=== PATIENT | female | born 1980 | race Two or more races ===

== ENCOUNTER 2016-08-06 06:58 | Day surgery (SDC) | payer MEDICARE, MEDICAID ==
[~2016-08-06 06:58] MED LIST: ADVAIR 1001 DISK W/D; ALBUTEROL17 GM; AMBIEN10 MG PO; AMBIEN5 M1 PO; ANTIVERT25 MG PO; AUGMENTIN 875-11 TAB PO; BENTYL20 MG PO; BUPROPION HCL100 MG PO; CIPRO500 MG PO; COMPAZINE10 M PO; CYMBALTA30 M1 PO; DARVOCET-N 1001 TAB; DELTASONE5 MG PO; DEPAKOTE; DEPAKOTE ER500 M1 PO; DEPAKOTE500 MG PO; DICYCLOMINE HCL10 MG PO; DIVALPROEX SOD500 M2 PO; DIVALPROEX SOD500 MG; ENSURE LIQUID237 M1 PO; FLEXERIL10 MG; FLONASE16 GM NS; FLUCONAZOLE150 M2 PO; FOLIC ACID1 M1 PO; FOLIC ACID1 MG; FOLIC ACID1 MG PO; GABAPENTIN PO; GABAPENTIN300 M1 PO; GABAPENTIN400 MG; GABAPENTIN800 M2 PO; GLUCOPHAGE1000 M1 PO; GLYBURIDE5 MG PO; HYDROCODONE; IRON PO; KAPIDEX60 MG; KAPIDEX60 MG PO; LEVEMIR FL100 UNIT/2 SQ; LEVOTHYROXINE200 MC4 PO; LEVOTHYROXINE88 MC2 PO; LEXAPRO10 MG; LEXAPRO20 MG PO; LOMOTIL 2.5-0.1 EACH PO; LORTAB 5/500 TA1 TAB; METFORMIN HCL1000 MG PO; METFORMIN HCL850 M1 PO; MULTIVITAMIN1 TAB PO; NAPROXEN; NAPROXEN250 MG; NAPROXEN250 MG PO; NEURONTIN400 MG; NEURONTIN400 MG PO; NORCO 10/3251 TAB PO; NORCO 5/325 TAB1 TAB PO; NORCO 5/3251 TAB PO; NORTRIPTYLINE H50 M1 PO; NOVOLOG FL100 UNIT/2 SC; OMEPRAZOLE20 M3 PO; OMEPRAZOLE40 M2 PO; OXYBUTYNIN CHLOR5 MG PO; OYSTER SHELL C500 MG PO; PERCOCET 5/3251 TAB; PERCOCET 5/3251 TAB PO; PHENERGAN W/CO120 M1 PO; PRENATAL 19 TAB1 TAB PO; PREVALITE PACKET4 GM PO; PRILOSEC20 MG PO; PROMETHAZINE HC25 M3 PO; PROVENTIL17 GM IH; REGLAN10 MG PO; RELAFEN500 MG; SYMBICORT; SYMBICORT 160-1 PUFF INH; SYMBICORT 160-4.6 GM IH; SYNTHROID100 MC1 PO; SYNTHROID25 MC1 PO; TRILEPTAL300 MG; TRULICITY1.5 MG/0.5 SC; TYLENOL #31 TAB PO; TYLENOL500 MG PO; ULTRAM50 MG; VALIUM2 MG PO; VENLAFAXINE H37.5 M4 PO; VENTOLIN HFA18 G2 INH; VERAPAMIL ER100 MG PO; VERAPAMIL HCL180 M1 PO; VICTOZA 2-0.6 MG/0.1 SQ; VICTOZA 3-0.6 MG/0.2 SQ; VITAMIN D1000 UNI1 PO; ZANAFLEX4 M; ZANAFLEX4 MG PO; [UNRECOGNIZED DRUG - SUPPLY] MC
[2016-08-06 07:28] LABS: BASO % 0.2 % (0-2); EOS % 1.8 % (0-7); EOSINOPHIL ABSOLUTE COUNT 0.3 tho/cmm (0.0-0.7); HGB-HEMOGLOBIN 13.1 gm/dl (12.0-15.5); IMMATURE GRANULOCYTES ABSOLUTE 0.05 tho/cmm (0-0.03); IMMATURE GRANULOCYTES PERCENT 0.4 % (0-0.3); LYMPH % 31.8 % (20-45); LYMPH ABSOLUTE COUNT 4.4 tho/cmm (0.8-4.5); MCH (MEAN CORPUSCULAR HGB) 28.1 pg (28.0-32.0); MCHC MEAN CORPUSCULAR HGB CONC 33.6 % (32.0-36.0); MCV (MEAN CELL VOLUME) 83.5 fl (82.0-96.0); MEAN PLATELET VOLUME 9.1 cmc (9.4-12.4); MONOCYTE ABSOLUTE COUNT 0.8 tho/cmm (0.0-1.2); NEUTROPHIL ABSOLUTE COUNT 8.3 tho/cmm (1.6-8.0); NEUTROPHIL-AUTOMATED 8.3 tho/cmm (1.6-8.0); NEUTROPHILS % 59.8 % (40-80); PLATELET COUNT 418 tho/cmm (150-450); RED BLOOD COUNT 4.67 mil/cmm (4.00-5.20); RED CELL DISTRIBUTION WIDTH 12.8 % (12.4-16.4); WHITE BLOOD COUNT 13.9 tho/cmm (4.0-10.0)
[2016-08-06 07:47] LABS: ANION GAP 13 mmol/L (0-20); BLOOD UREA NITROGEN 10 mg/dl (6-24); CALCIUM 8.2 mg/dl (8.5-10.5); CARBON DIOXIDE-VENOUS 27 mmol/L (22-32); CHLORIDE 104 mmol/l (96-110); CREATININE 0.67 mg/dl (0.50-1.10); GLUCOSE 148 mg/dL (70-110); POTASSIUM 4.1 mmol/L (3.7-5.1); SODIUM 140 mmol/L (135-145); eGFR VALUE FOR BLACK >90 mL/Min
[2016-11-03] MEDS ORDERED: ZOFRAN ODT8 MG PO (10:29)
[2016-11-03] MEDS ORDERED: CYMBALTA30 M1 PO (10:29)
[2016-11-04] MEDS ORDERED: MELATONIN1 M2 PO (00:43)
[2016-11-05] MEDS ORDERED: CLEOCIN HCL300 M1 PO (09:56)
== END 2016-08-06 10:22 ==
LOC: ENDOS 06:58 → SHSC 07:02 → ENDOS 08:29
PROVIDERS: Anesthesiology
PROC: 0DB58ZX Excision of Esophagus, Via Natural or Artificial Opening Endoscopic, Diagnostic (ICD-10-PCS; principal; 2016-08-06)
PROC: 0DB68ZX Excision of Stomach, Via Natural or Artificial Opening Endoscopic, Diagnostic (ICD-10-PCS; 2016-08-06)
PROC: 0D757ZZ Dilation of Esophagus, Via Natural or Artificial Opening (ICD-10-PCS; 2016-08-06)
DX: R13.10 Dysphagia, unspecified (principal); K29.50 Unspecified chronic gastritis without bleeding; J45.909 Unspecified asthma, uncomplicated; E03.9 Hypothyroidism, unspecified; K21.9 Gastro-esophageal reflux disease without esophagitis; E11.9 Type 2 diabetes mellitus without complications; G40.909 Epilepsy, unspecified, not intractable, without status epilepticus; E89.0 Postprocedural hypothyroidism; Z79.4 Long term (current) use of insulin; Z79.82 Long term (current) use of aspirin; Z79.899 Other long term (current) drug therapy; Z88.5 Allergy status to narcotic agent; Z88.8 Allergy status to other drugs, medicaments and biological substances; Z98.1 Arthrodesis status; Z98.890 Other specified postprocedural states

== ENCOUNTER 2016-08-23 00:38 | Emergency (ER) | payer MEDICARE, MEDICAID ==
[2016-08-23] MEDS ORDERED: TESSALON PERLE100 M1 PO (02:15)
[2016-08-23] MEDS ORDERED: CODEINE-GUAIFE120 M1 PO (02:15)
[2016-11-03] MEDS ORDERED: CYMBALTA30 M1 PO (10:29)
[2016-11-03] MEDS ORDERED: ZOFRAN ODT8 MG PO (10:29)
[2016-11-04] MEDS ORDERED: MELATONIN1 M2 PO (00:43)
[2016-11-05] MEDS ORDERED: CLEOCIN HCL300 M1 PO (09:56)
== END 2016-08-23 02:18 ==
LOC: EDMED 00:38
DX: J20.9 Acute bronchitis, unspecified (principal); E11.9 Type 2 diabetes mellitus without complications; Z90.49 Acquired absence of other specified parts of digestive tract; Z90.89 Acquired absence of other organs; Z79.4 Long term (current) use of insulin; Z79.899 Other long term (current) drug therapy

== ENCOUNTER 2016-11-09 19:07 | Emergency (ER) | payer MEDICARE, MEDICAID ==
[~2016-11-09 19:07] MED LIST changes: +CLEOCIN HCL300 M1 PO; +CODEINE-GUAIFE120 M1 PO; +MELATONIN1 M2 PO; +TESSALON PERLE100 M1 PO; +ZOFRAN ODT8 MG PO
[2016-11-09 20:11] LABS: BASO % 0.2 % (0-2); EOS % 1.5 % (0-7); EOSINOPHIL ABSOLUTE COUNT 0.2 tho/cmm (0.0-0.7); HCT-HEMATOCRIT 37.6 % (34.0-49.0); HGB-HEMOGLOBIN 12.6 gm/dl (12.0-15.5); IMMATURE GRANULOCYTES ABSOLUTE 0.07 tho/cmm (0-0.03); IMMATURE GRANULOCYTES PERCENT 0.6 % (0-0.3); LYMPH % 21.4 % (20-45); LYMPH ABSOLUTE COUNT 2.7 tho/cmm (0.8-4.5); MCHC MEAN CORPUSCULAR HGB CONC 33.5 % (32.0-36.0); MCV (MEAN CELL VOLUME) 80.7 fl (82.0-96.0); MEAN PLATELET VOLUME 8.9 cmc (9.4-12.4); MONO % 9.2 % (0-12); MONOCYTE ABSOLUTE COUNT 1.2 tho/cmm (0.0-1.2); NEUTROPHIL ABSOLUTE COUNT 8.4 tho/cmm (1.6-8.0); NEUTROPHIL-AUTOMATED 8.4 tho/cmm (1.6-8.0); NEUTROPHILS % 67.1 % (40-80); PLATELET COUNT 379 tho/cmm (150-450); RED BLOOD COUNT 4.66 mil/cmm (4.00-5.20); WHITE BLOOD COUNT 12.6 tho/cmm (4.0-10.0)
[2016-11-09 20:20] LABS: PREGNANCY-SERUM NEGATIVE (NEGATIVE)
[2016-11-09 20:33] LABS: ALB/GLOB RATIO 0.9 (0.8-2.0); ALBUMIN 3.5 g/dl (3.5-5.0); ALKALINE PHOSPHATASE 100 U/L (33-138); ALT/SGPT 20 U/L (12-78); ANION GAP 15 mmol/L (0-20); AST/SGOT 12 U/L (10-40); BILIRUBIN,TOTAL 0.3 mg/dl (0-1.5); BLOOD UREA NITROGEN 13 mg/dl (6-24); CALCIUM 8.7 mg/dl (8.5-10.5); CARBON DIOXIDE-VENOUS 24 mmol/L (22-32); CHLORIDE 104 mmol/l (96-110); CREATININE 1.29 mg/dl (0.50-1.10); GLUCOSE 188 mg/dL (70-110); LIPASE 89 U/L (73-393); SODIUM 139 mmol/L (135-145); eGFR VALUE FOR BLACK 62 mL/Min
[2016-11-09] MEDS ORDERED: ZOFRAN ODT4 MG PO (22:39)
[2016-11-09] MEDS ORDERED: NORCO 5-325 TA1 EACH PO (22:39)
[2016-11-09] MEDS ORDERED: LOPERAMIDE2 M2 PO (22:39)
== END 2016-11-09 23:06 ==
LOC: EDMED 19:07
PROVIDERS: Emergency Medicine
DX: N28.9 Disorder of kidney and ureter, unspecified (principal); R11.2 Nausea with vomiting, unspecified; R19.7 Diarrhea, unspecified; E11.9 Type 2 diabetes mellitus without complications; I10 Essential (primary) hypertension; E03.9 Hypothyroidism, unspecified; Z90.49 Acquired absence of other specified parts of digestive tract; Z98.890 Other specified postprocedural states; Z79.4 Long term (current) use of insulin; Z79.890 Hormone replacement therapy; Z79.899 Other long term (current) drug therapy
CPT/HCPCS: J1170; J2405; J7030; Q9967